=== PATIENT | male | born 1975 | race Caucasian/White ===

== ENCOUNTER 2016-11-02 15:47 | Emergency (ER) | payer BC, OTHER ==
--- NOTE | 2016-11-02 17:04 | REP ---
Chest x-ray: Two views. History: Chest pain . Comparison study: No comparison . Findings: The lungs are well inflated and free of infiltrate. The pleural angles are sharp. The heart size is normal. Pulmonary vasculature is not increased. No significant bony abnormality is seen. Impression: Negative chest x-ray. Signed by Pedrito Roa MD 11/02/2016 04:56 P
--- NOTE | 2016-11-02 17:40 | EDDOCDS ---
Nurse's Notes [facility] Name: Marquis Menjivar Age: 41 yrs Sex: Male : 1975 Arrival Date: 11/02/2016 Time: 15:47 Bed PD Private MD: Diagnosis: Chest pain, unspecified;Gastro-esophageal reflux disease Presentation: 11/02 15:53 Presenting complaint: Patient states: "cramping" like chest pain at approx 1505 lasting jjr approx 2 minutes, pt reports several episodes in the past but wanted to "get checked out today" pt denies SOB then and now also denies any diaphoresis. Aspirin was not taken prior to arrival. Adult Sepsis Screening: The patient does not have new or worsening altered mentation. Patient's respiratory rate is less than 22. Systolic blood pressure is greater than 100. Patient has a qSOFA score of 0- Negative Sepsis Screen. Suicide/Homicide risk assessment- the patient denies having any suicidal and/or homicidal ideations and does not present with any other emotional, behavioral or mental health complaints. Status: Patient is not a financial service rep or dependent. Transition of care: patient was not received from another setting of care. 15:53 Acuity: BITA Level 3 jjr 15:53 Method Of Arrival: Walkin/Carried/Asstd jjr Triage Assessment: 15:57 General: Appears in no apparent distress. Pain: Denies pain. Pt Declines HIV testing. jjr Neurological: No deficits noted. Cardiovascular: Chest pain is described as Pain is 6 out of 10 on a pain scale. radiates to right chest episodes last 2-3 minutes began 1 hour prior to arrival. Respiratory: No deficits noted. Derm: No deficits noted. Historical: - Allergies: PENICILLINS (Unknown); - Home Meds: 1. none - PMHx: none; - PSHx: Tonsillectomy; - Social history: Smoking status: Patient states former smoker of tobacco. No barriers to communication noted, The patient speaks fluent Polish. - Family history: Not pertinent. - : The pt / caregiver states he / she is not on anticoagulants. Home medication list is obtained from the patient. - Exposure Risk Screening:: None identified. Screenin:37 Screening information is obtained from the patient. Fall risk: No risks identified. ttb Assistance ADL's: requires no assistance with activities of daily living. Abuse/DV Screen: The patient / caregiver reports he/she is: not in a situation that causes fear, pain or injury. Nutritional screening: No deficits noted. Advance Directives: Currently, there is no health care proxy. home support is adequate. Assessment: 17:37 General: Appears in no apparent distress, comfortable, well nourished, well groomed, ttb Behavior is anxious, appropriate for age, cooperative, pleasant. Pain: Location: Mid chest. Neurological: Level of Consciousness is awake, alert. Cardiovascular: Rhythm is SEE EKG. Respiratory: Airway is patent Respiratory effort is even, unlabored, Denies cough, shortness of breath. GI: Denies nausea, vomiting, pain. Derm: Skin is normal. Injury Description: No known injury. Vital Signs: 15:49 BP 147 / 88; Pulse 78; Resp 18; Temp 97.7(O); Pulse Ox 100% on R/A; Weight 72.57 kg ct3 (R); Height 5 ft. 7 in. (170.18 cm) (R); Pain 0/10; 17:25 BP 144 / 90; Pulse 61; Resp 18; Temp 98.8(O); Pulse Ox 99% on R/A; Pain 0/10; jb5 15:49 Body Mass Index 25.06 (72.57 kg, 170.18 cm) ct3 Vitals: 15:49 Log In Time: November 02, 2016 at 15:47. RN notified that patient meets Red Flag ct3 criteria. ED Course: 15:48 Patient visited by Helena Esteban PCA. ct3 15:48 Patient moved to Waiting ct3 15:51 Patient moved to PR2 / 26 ct3 15:54 Triage Initiated jjr 15:58 Patient moved to Triage 1 jjr 15:58 EKG done. (by ED staff). Reviewed by Selvin Gongora MD. ms18 16:08 Pancho Vang PA-C is PSYCHIATRICP. dk1 16:08 Selvin Gongora MD is Attending Physician. dk1 16:08 Patient visited by Pancho Vang PA-C. dk1 16:47 Patient moved to TR2 ttb 16:53 [facility] Payment Agreement was scanned into [employer] and attached to record. jp5 17:10 Chest, 2 View (pa\\E\\lat) Returned. EDMS 17:17 Patient moved to jb5 17:25 Patient visited by Merle Keane PCA. jb5 17:26 Patient visited by Merle Keane PCA. jb5 17:37 The patient / caregiver is instructed regarding the plan of care and ED course. Patient ttb has correct armband on for positive identification. Cardiac monitoring not applicable on this patient. 17:37 No IV's were initiated during this patient's visit. No procedures done that require ttb assistance. Order Results: Radiology Order: Chest, 2 View (pa\\E\\lat) Test: Chest, 2 View (pa\\E\\lat) REASON FOR EXAMINATION: Chest Pain; Chest x-ray: Two views.; ; History: Chest pain .; ; Comparison study: No comparison .; ; Findings: The lungs are well inflated and free of infiltrate. The pleural; angles are sharp. The heart size is normal. Pulmonary vasculature is not; increased. No significant bony abnormality is seen.; ; Impression:; ; Negative chest x-ray.; ; ; Signed by; Pedrito Roa MD 11/02/2016 04:56 P; Outcome: 17:17 Discharge ordered by Provider. dk1 17:37 Discharge Assessment: Patient awake, alert and oriented x 3. No cognitive and/or ttb functional deficits noted. Patient verbalized understanding of disposition instructions. Patient awake and alert. patient administered narcotics - no. The following High Risk Discharge criteria are identified: None. Discharged to home ambulatory. Condition: good Condition: stable Condition: improved. Discharge instructions given to patient, Instructed on discharge instructions, follow up and referral plans. medication usage, diet, Demonstrated understanding of instructions, medications, decrease acidic diet Pt was receptive of discharge instructions/ teaching. Prescriptions given X 1. No special radiology studies were completed. Property :Personal belongings accompany Pt. 17:39 Patient left the ED. ttb Signatures: Dispatcher [employer] EDSD Merle Keane PCA EVENTS ASSOCIATE jb5 Pancho Vang PA-C PA-C dk1 Valerie Garcia, RN RN Helena Duran PCA EVENTS ASSOCIATE ct3 Simi Adame RN RN ttb Jesika Tapia RN RN ms18 Raysa Johnson 5 MTDD
--- NOTE | 2016-11-02 17:40 | EDDOCDS ---
Physician Documentation [facility] Name: Marquis Menjivar Age: 41 yrs Sex: Male : 1975 Arrival Date: 11/02/2016 Time: 15:47 Bed PD Private MD: Disposition: 11/02/16 17:17 Discharged to Home/Self Care. Impression: Chest pain, unspecified, Gastro-esophageal reflux disease. - Condition is Stable. - Discharge Instructions: Nonspecific Chest Pain, Gastroesophageal Reflux Disease, Adult. - Prescriptions for Prilosec 20 mg Oral Capsule, Delayed Release(E.C.) - take 1 capsule by ORAL route once daily; 30 capsule. - Medication Reconciliation, Local Pharmacy Hours form. - Follow up: Private Physician; When: 2 - 3 days; Reason: Continuance of care. Follow up: Emergency Department; When: As needed; Reason: Worsening of conditions. - Problem is new. - Symptoms are resolved. Historical: - Allergies: PENICILLINS (Unknown); - Home Meds: 1. none - PMHx: none; - PSHx: Tonsillectomy; - Social history: Smoking status: Patient states former smoker of tobacco. No barriers to communication noted, The patient speaks fluent Spanish. - Family history: Not pertinent. - : The pt / caregiver states he / she is not on anticoagulants. Home medication list is obtained from the patient. - Exposure Risk Screening:: None identified. Vital Signs: 11/02 15:49 BP 147 / 88; Pulse 78; Resp 18; Temp 97.7(O); Pulse Ox 100% on R/A; Weight 72.57 kg / ct3 159.99 lbs (R); Height 5 ft. 7 in. (170.18 cm) (R); Pain 0/10; 17:25 BP 144 / 90; Pulse 61; Resp 18; Temp 98.8(O); Pulse Ox 99% on R/A; Pain 0/10; jb5 15:49 Body Mass Index 25.06 (72.57 kg, 170.18 cm) ct3 MDM: 15:50 ECG WITH READING ER PHYS+CARDIAG ordered. EDMS 16:32 Chest, 2 View (pa\E\lat) Ordered. EDMS 16:53 [place] was scanned into [employer] and attached to record. jp5 16:53 Financial registration complete. jp5 Signatures: Dispatcher [employer] Pancho Carmona, PARTH PABrooklynn dk1 Valerie Garcia, RN RN Simi Thomason RN RN Raysa Quintanilla jp5 The chart was reviewed and I authenticate all verbal orders and agree with the evaluation and treatment provided.Attachments: 16:53 [facility] Payment Agreement jp5 MTDD
--- NOTE | 2016-11-03 08:54 | ECGEPIP ---
Stationary ECG Study [facility] - ED Test Date: 2016-11-02 Pat Name: KAREN SIMMONS Department: Room: - Gender: M Derrick Operator: ms : 1975 Requested By: Selvin Ulrich Order Number: [id number] Reading MD: Gale Dial Measurements Intervals [place] Rate: 62 P: 52 MO: 166 QRS: -9 QRSD: 83 T: 20 QT: 397 QTc: 404 Interpretive Statements SINUS RHYTHM NO PRIOR FOR COMPARISON Electronically Signed On 11-03-2016 8:53:55 EST by Gale Dial
--- NOTE | 2016-11-04 18:40 | EDDOCDS ---
Physician Documentation [facility] Name: Marquis Menjivar Age: 41 yrs Sex: Male : 1975 Arrival Date: 11/02/2016 Time: 15:47 Bed PD Private MD: Disposition: 11/02/16 17:17 Discharged to Home/Self Care. Impression: Chest pain, unspecified, Gastro-esophageal reflux disease. - Condition is Stable. - Discharge Instructions: Nonspecific Chest Pain, Gastroesophageal Reflux Disease, Adult. - Prescriptions for Prilosec 20 mg Oral Capsule, Delayed Release(E.C.) - take 1 capsule by ORAL route once daily; 30 capsule. - Medication Reconciliation, Local Pharmacy Hours form. - Follow up: Private Physician; When: 2 - 3 days; Reason: Continuance of care. Follow up: Emergency Department; When: As needed; Reason: Worsening of conditions. - Problem is new. - Symptoms are resolved. Historical: - Allergies: PENICILLINS (Unknown); - Home Meds: 1. none - PMHx: none; - PSHx: Tonsillectomy; - Social history: Smoking status: Patient states former smoker of tobacco. No barriers to communication noted, The patient speaks fluent Belarusian. - Family history: Not pertinent. - : The pt / caregiver states he / she is not on anticoagulants. Home medication list is obtained from the patient. - Exposure Risk Screening:: None identified. Vital Signs: 11/02 15:49 BP 147 / 88; Pulse 78; Resp 18; Temp 97.7(O); Pulse Ox 100% on R/A; Weight 72.57 kg / ct3 159.99 lbs (R); Height 5 ft. 7 in. (170.18 cm) (R); Pain 0/10; 17:25 BP 144 / 90; Pulse 61; Resp 18; Temp 98.8(O); Pulse Ox 99% on R/A; Pain 0/10; jb5 15:49 Body Mass Index 25.06 (72.57 kg, 170.18 cm) ct3 MDM: 15:50 ECG WITH READING ER PHYS+CARDIAG ordered. EDMS 16:32 Chest, 2 View (pa\E\lat) Ordered. EDMS 16:53 [place] [place] Agreement was scanned into [employer] and attached to record. jp5 16:53 Financial registration complete. jp5 22:38 T-Sheet-- Draft Copy was scanned into [employer] and attached to record. r 11/03 15:42 ECG/EKG was scanned into [employer] and attached to record. kf3 Signatures: Dispatcher [employer] EDPancho Andrea PA-C PA-C dk1 Robinson Patel, Reg Reg kf3 Valerie Garcia RN RN Simi Thomason RN RN Raysa Quintanilla jp5 Gloria Araujo klr The chart was reviewed and I authenticate all verbal orders and agree with the evaluation and treatment provided.Attachments: 11/02 16:53 [facility] INCLUDES THE [facility] Payment Agreement jp5 22:38 T-Sheet-- Draft Copy r 11/03 15:42 ECG/EKG kf3 Chart Complete MTDD
--- NOTE | 2016-11-04 18:40 | EDDOCDS ---
Nurse's Notes [facility] Name: Karen Simmons Age: 41 yrs Sex: Male : 1975 Arrival Date: 11/02/2016 Time: 15:47 Bed PD Private MD: Diagnosis: Chest pain, unspecified;Gastro-esophageal reflux disease Presentation: 11/02 15:53 Presenting complaint: Patient states: "cramping" like chest pain at approx 1505 lasting jjr approx 2 minutes, pt reports several episodes in the past but wanted to "get checked out today" pt denies SOB then and now also denies any diaphoresis. Aspirin was not taken prior to arrival. Adult Sepsis Screening: The patient does not have new or worsening altered mentation. Patient's respiratory rate is less than 22. Systolic blood pressure is greater than 100. Patient has a qSOFA score of 0- Negative Sepsis Screen. Suicide/Homicide risk assessment- the patient denies having any suicidal and/or homicidal ideations and does not present with any other emotional, behavioral or mental health complaints. Status: Patient is not a automotive service management teacher or dependent. Transition of care: patient was not received from another setting of care. 15:53 Acuity: BITA Level 3 jjr 15:53 Method Of Arrival: Walkin/Carried/Asstd jjr Triage Assessment: 15:57 General: Appears in no apparent distress. Pain: Denies pain. Pt Declines HIV testing. jjr Neurological: No deficits noted. Cardiovascular: Chest pain is described as Pain is 6 out of 10 on a pain scale. radiates to right chest episodes last 2-3 minutes began 1 hour prior to arrival. Respiratory: No deficits noted. Derm: No deficits noted. Historical: - Allergies: PENICILLINS (Unknown); - Home Meds: 1. none - PMHx: none; - PSHx: Tonsillectomy; - Social history: Smoking status: Patient states former smoker of tobacco. No barriers to communication noted, The patient speaks fluent Yakut. - Family history: Not pertinent. - : The pt / caregiver states he / she is not on anticoagulants. Home medication list is obtained from the patient. - Exposure Risk Screening:: None identified. Screenin:37 Screening information is obtained from the patient. Fall risk: No risks identified. ttb Assistance ADL's: requires no assistance with activities of daily living. Abuse/DV Screen: The patient / caregiver reports he/she is: not in a situation that causes fear, pain or injury. Nutritional screening: No deficits noted. Advance Directives: Currently, there is no health care proxy. home support is adequate. Assessment: 17:37 General: Appears in no apparent distress, comfortable, well nourished, well groomed, ttb Behavior is anxious, appropriate for age, cooperative, pleasant. Pain: Location: Mid chest. Neurological: Level of Consciousness is awake, alert. Cardiovascular: Rhythm is SEE EKG. Respiratory: Airway is patent Respiratory effort is even, unlabored, Denies cough, shortness of breath. GI: Denies nausea, vomiting, pain. Derm: Skin is normal. Injury Description: No known injury. Vital Signs: 15:49 BP 147 / 88; Pulse 78; Resp 18; Temp 97.7(O); Pulse Ox 100% on R/A; Weight 72.57 kg ct3 (R); Height 5 ft. 7 in. (170.18 cm) (R); Pain 0/10; 17:25 BP 144 / 90; Pulse 61; Resp 18; Temp 98.8(O); Pulse Ox 99% on R/A; Pain 0/10; jb5 15:49 Body Mass Index 25.06 (72.57 kg, 170.18 cm) ct3 Vitals: 15:49 Log In Time: November 02, 2016 at 15:47. RN notified that patient meets Red Flag ct3 criteria. ED Course: 15:48 Patient visited by Helena Esteban PCA. ct3 15:48 Patient moved to Waiting ct3 15:51 Patient moved to PR2 / 26 ct3 15:54 Triage Initiated jjr 15:58 Patient moved to Triage 1 jjr 15:58 EKG done. (by ED staff). Reviewed by Selvin Gongora MD. ms18 16:08 Pancho Vang PA-C [facility]. dk1 16:08 Selvin Gongora MD is Attending Physician. dk1 16:08 Patient visited by Pancho Vang PA-C. dk1 16:47 Patient moved to TR2 ttb 16:53 [facility] Payment Agreement was scanned into [employer] and attached to record. jp5 17:10 Chest, 2 View (pa\\E\\lat) Returned. EDMS 17:17 Patient moved to PD jb5 17:25 Patient visited by Merle Keane PCA. jb5 17:26 Patient visited by Merle Keane PCA. jb5 17:37 The patient / caregiver is instructed regarding the plan of care and ED course. Patient ttb has correct armband on for positive identification. Cardiac monitoring not applicable on this patient. 17:37 No IV's were initiated during this patient's visit. No procedures done that require ttb assistance. 22:38 T-Sheet-- Draft Copy was scanned into [employer] and attached to record. r 11/03 09:23 EKG-ADULT Returned. EDMS 15:42 ECG/EKG was scanned into [employer] and attached to record. kf3 Order Results: Radiology Order: EKG-ADULT Test: EKG-ADULT REASON FOR EXAMINATION: Chest Pain; Stationary ECG Study; [facility] - ED; ; Test Date: 2016-11-02; Pat Name: KAREN SIMMONS Department:; Room: -; Gender: M Technical Support 1 Software Engineer: ms; : 1975 Requested By: Selvin Ulrich; Order Number: [id number] Reading MD: Gale Dial; Measurements; Intervals [place]; Rate: 62 P: 52; MA: 166 QRS: -9; QRSD: 83 T: 20; QT: 397; QTc: 404; Interpretive Statements; SINUS RHYTHM; NO PRIOR FOR COMPARISON; Electronically Signed On 11-03-2016 8:53:55 EST by Gale Dial; Radiology Order: Chest, 2 View (pa\\E\\lat) Test: Chest, 2 View (pa\\E\\lat) REASON FOR EXAMINATION: Chest Pain; Chest x-ray: Two views.; ; History: Chest pain .; ; Comparison study: No comparison .; ; Findings: The lungs are well inflated and free of infiltrate. The pleural; angles are sharp. The heart size is normal. Pulmonary vasculature is not; increased. No significant bony abnormality is seen.; ; Impression:; ; Negative chest x-ray.; ; ; Signed by; Pedrito Roa MD 11/02/2016 04:56 P; Outcome: 11/02 17:17 Discharge ordered by Provider. dk1 17:37 Discharge Assessment: Patient awake, alert and oriented x 3. No cognitive and/or ttb functional deficits noted. Patient verbalized understanding of disposition instructions. Patient awake and alert. patient administered narcotics - no. The following High Risk Discharge criteria are identified: None. Discharged to home ambulatory. Condition: good Condition: stable Condition: improved. Discharge instructions given to patient, Instructed on discharge instructions, follow up and referral plans. medication usage, diet, Demonstrated understanding of instructions, medications, decrease acidic diet Pt was receptive of discharge instructions/ teaching. Prescriptions given X 1. No special radiology studies were completed. Property :Personal belongings accompany Pt. 17:39 Patient left the ED. ttb Signatures: Dispatcher [employer] EDMS Merle Keane, WELDING MACHINE OPERATOR GAS WELDING MACHINE OPERATOR GAS jb5 Pancho Vang PA-C PABrooklynn dk1 Robinson Patel, Reg Reg kf3 Valerie Garcia, RN RN Helena Duran, WELDING MACHINE OPERATOR GAS WELDING MACHINE OPERATOR GAS ct3 Simi Adame, NANCY RN ttb Jesika Tapia RN RN ms18 Raysa Johnson jp5 Gloria Araujo Chart Complete MTDAntelmo
--- NOTE | 2016-11-04 18:40 | EDDOCDS ---
Physician Documentation [facility] Name: Marquis Menjivar Age: 41 yrs Sex: Male : 1975 Arrival Date: 11/02/2016 Time: 15:47 Bed PD Private MD: Disposition: 11/02/16 17:17 Discharged to Home/Self Care. Impression: Chest pain, unspecified, Gastro-esophageal reflux disease. - Condition is Stable. - Discharge Instructions: Nonspecific Chest Pain, Gastroesophageal Reflux Disease, Adult. - Prescriptions for Prilosec 20 mg Oral Capsule, Delayed Release(E.C.) - take 1 capsule by ORAL route once daily; 30 capsule. - Medication Reconciliation, Local Pharmacy Hours form. - Follow up: Private Physician; When: 2 - 3 days; Reason: Continuance of care. Follow up: Emergency Department; When: As needed; Reason: Worsening of conditions. - Problem is new. - Symptoms are resolved. Historical: - Allergies: PENICILLINS (Unknown); - Home Meds: 1. none - PMHx: none; - PSHx: Tonsillectomy; - Social history: Smoking status: Patient states former smoker of tobacco. No barriers to communication noted, The patient speaks fluent Czech. - Family history: Not pertinent. - : The pt / caregiver states he / she is not on anticoagulants. Home medication list is obtained from the patient. - Exposure Risk Screening:: None identified. Vital Signs: 11/02 15:49 BP 147 / 88; Pulse 78; Resp 18; Temp 97.7(O); Pulse Ox 100% on R/A; Weight 72.57 kg / ct3 159.99 lbs (R); Height 5 ft. 7 in. (170.18 cm) (R); Pain 0/10; 17:25 BP 144 / 90; Pulse 61; Resp 18; Temp 98.8(O); Pulse Ox 99% on R/A; Pain 0/10; jb5 15:49 Body Mass Index 25.06 (72.57 kg, 170.18 cm) ct3 MDM: 15:50 ECG WITH READING ER PHYS+CARDIAG ordered. EDMS 16:32 Chest, 2 View (pa\E\lat) Ordered. EDMS 16:53 [place] [place] was scanned into [employer] and attached to record. jp5 16:53 Financial registration complete. jp5 22:38 T-Sheet-- Draft Copy was scanned into [employer] and attached to record. r 11/03 15:42 ECG/EKG was scanned into [employer] and attached to record. kf3 Signatures: Dispatcher [employer] EDPancho Andrea PA-C PA-C dk1 Robinson Patel, Reg Reg kf3 Valerie Garcia RN RN Simi Thomason RN RN Raysa Quintanilla jp5 Gloria Araujo klr The chart was reviewed and I authenticate all verbal orders and agree with the evaluation and treatment provided.Attachments: 11/02 16:53 [facility] Payment Agreement jp5 22:38 T-Sheet-- Draft Copy r 11/03 15:42 ECG/EKG kf3 Chart Complete MTDD
== END 2016-11-02 17:39 | disposition home or self-care (01) ==
LOC: M ED 15:47
DX: R07.9 Chest pain, unspecified (principal); K21.9 Gastro-esophageal reflux disease without esophagitis; Z87.891 Personal history of nicotine dependence; Z88.0 Allergy status to penicillin

== ENCOUNTER 2017-03-18 19:18 | Emergency (ER) | payer BC, OTHER ==
[~2017-03-18] VITALS: Ht 170.2 cm; Wt 73.1 kg
[2017-03-18] MEDS ORDERED: KETOROLAC 60 MG/2 ML VIAL (J1885) IM ONE (21:30)
[2017-03-18] MEDS ORDERED: PERCOCET 5MG/325MG TAB PO ONE (21:30)
[2017-03-18] MEDS ORDERED: NAPR500T PO (21:33)
[2017-03-18] MEDS ORDERED: NORCOTAB PO (21:33)
[2017-03-18 21:59] VITALS: BP 156/103
--- NOTE | 2017-03-18 23:24 | REP ---
LEFT SHOULDER, THREE VIEWS: There is no evidence of an acute fracture, dislocation or intrinsic bone disease. IMPRESSION: No fracture or dislocation. Signed by Jimmy Erickson MD 03/19/2017 05:00 P
--- NOTE | 2017-03-18 23:25 | REP ---
LEFT RIB SERIES: Four views of the left ribs performed. There is no acute fracture or bone lesion. An accompanying view of the chest demonstrates no acute infiltrate or pneumothorax. Heart is normal in size. IMPRESSION: Negative left rib series. Signed by Jimmy Erickson MD 03/19/2017 05:00 P
== END 2017-03-18 22:04 | disposition home or self-care (01) ==
LOC: M ED 20:29
DX: S20.219A Contusion of unspecified front wall of thorax, initial encounter (principal); W51.XXXA Accidental striking against or bumped into by another person, initial encounter; Y92.89 Other specified places as the place of occurrence of the external cause; Y93.64 Activity, baseball; Y99.8 Other external cause status; Z87.891 Personal history of nicotine dependence
CPT/HCPCS: 71101; 73030; 96372; 99283; J1885

== ENCOUNTER 2019-07-20 11:54 | Emergency (ER) | payer OTHER, BC ==
[~2019-07-20] VITALS: Ht 170.2 cm; Wt 71.8 kg
[~2019-07-20 11:54] MED LIST: HYDR-3715 PO; NAPR-837 PO
[2019-07-20] MEDS ORDERED: LIDOCAINE W/EPINEPHRINE 1% 20ML VIAL SC ONE (13:00)
[2019-07-20 13:51] VITALS: BP 141/95
== END 2019-07-20 13:54 | disposition home or self-care (01) ==
LOC: M ED 11:54
DX: S01.81XA Laceration without foreign body of other part of head, initial encounter (principal); W22.8XXA Striking against or struck by other objects, initial encounter; Y92.099 Unspecified place in other non-institutional residence as the place of occurrence of the external cause; Y93.89 Activity, other specified; Y99.9 Unspecified external cause status; Z88.0 Allergy status to penicillin

== ENCOUNTER 2019-11-26 06:49 | Emergency (ER) | payer BC, OTHER ==
[~2019-11-26] VITALS: Ht 170.2 cm; Wt 71.8 kg
[2019-11-26 07:51] LABS: BASO % 1.1 % (0.0-1.0); EOS # 0.1 10^3/uL (0.0-0.5); EOS % 2.1 % (0.0-3.0); HEMATOCRIT 45.9 % (42.0-52.0); HEMOGLOBIN 14.6 g/dl (13.5-17.5); LYMPH # 1.2 10^3/uL (1.5-5.0); LYMPH % 31.9 % (24.0-44.0); MEAN CORPUSCULAR HGB CONC 31.8 g/dl (32.0-36.5); MEAN CORPUSCULAR VOLUME 91.3 fl (80.0-96.0); MONO # 0.5 10^3/uL (0.0-0.8); MONO % 12.1 % (0.0-5.0); NEUTROPHILS % 52.5 % (36.0-66.0); PLATELET COUNT, AUTOMATED 237 10^3/uL (150-450); RED BLOOD COUNT 5.03 10^6/uL (4.30-6.10); WHITE BLOOD COUNT 3.7 10^3/uL (4.0-10.0)
[2019-11-26 07:54] LABS: APPEARANCE, URINE CLEAR (CLEAR); BACTERIA, URINE AUTO NEGATIVE (NEGATIVE); BILIRUBIN, URINE AUTO NEGATIVE (NEGATIVE); BLOOD, URINE BLOOD NEGATIVE (NEGATIVE); COLOR, URINE YELLOW (YELLOW); GLUCOSE, URINE (UA) AUTO NEGATIVE (NEGATIVE); KETONE, URINE AUTO NEGATIVE (NEGATIVE); LEUKOCYTE ESTERASE, URINE AUTO NEGATIVE (NEGATIVE); NITRITE, URINE AUTO NEGATIVE (NEGATIVE); PROTEIN, URINE AUTO NEGATIVE (NEGATIVE); RBC, URINE AUTO 1 /HPF (0-3); SPECIFIC GRAVITY URINE AUTO 1.016 (1.002-1.035); SQUAMOUS EPITHELIAL CELL UR AU 0 /HPF (0-6); UROBILINOGEN, URINE AUTO 0.2 mg/dL (0.0-2.0); WBC, URINE AUTO 1 /HPF (0-3)
[2019-11-26 08:15] LABS: ALBUMIN 4.3 GM/DL (3.2-5.2); ALT/SGPT 27 U/L (12-78); BILIRUBIN,DIRECT 0.1 MG/DL (0.0-0.2); BILIRUBIN,TOTAL 0.6 MG/DL (0.2-1.0); BLOOD UREA NITROGEN 13 MG/DL (7-18); CALCIUM LEVEL 8.9 MG/DL (8.5-10.1); CARBON DIOXIDE LEVEL 27 MEQ/L (21-32); CHLORIDE LEVEL 108 MEQ/L (98-107); CREATININE FOR GFR 0.97 MG/DL (0.70-1.30); GLOMERULAR FILTRATION RATE > 60.0 (>60); GLUCOSE, FASTING 90 MG/DL (70-100); LIPASE 115 U/L (73-393); POTASSIUM SERUM 4.5 MEQ/L (3.5-5.1); SODIUM LEVEL 142 MEQ/L (136-145); TOTAL PROTEIN 7.4 GM/DL (6.4-8.2)
--- NOTE | 2019-11-26 08:53 | REP ---
CT abdomen and pelvis without IV or oral contrast: Renal stone protocol. HISTORY : Right flank pain and groin pain. No comparison study. Findings: Preliminary digital saw grinder radiograph demonstrates an unremarkable bowel gas pattern. The lung bases are clear. The liver is normal in size, homogeneous in texture. No focal hepatic lesion is seen. Spleen is unremarkable. No adrenal lesion is observed on either side. No abnormality is noted in the pancreas or within the gallbladder. There is no evidence of hydronephrosis or intrarenal calculus in either kidney. No ureteral calculus is observed. No bladder calculus is seen. There is a dystrophic calcification in the prostate. A phlebolith is noted in the left pelvis. No pelvic mass or adenopathy is seen. A normal non-inflamed appendix is seen in the right lower quadrant. Small and large bowel loops are unremarkable. No retroperitoneal mass or adenopathy is observed. No abdominal wall defect is seen. Bone window settings show no bony destructive lesion. Impression: Negative CT study abdomen and pelvis. No urinary tract calculus or hydronephrosis seen. No acute abnormality. Electronically Signed by Pedrito Roa MD 11/26/2019 09:00 A
[2019-11-26 08:57] VITALS: BP 179/102
== END 2019-11-26 08:58 | disposition home or self-care (01) ==
LOC: M ED 06:49
DX: R10.9 Unspecified abdominal pain (principal); R11.0 Nausea; Z88.0 Allergy status to penicillin

== ENCOUNTER 2023-01-07 15:24 | Emergency (ER) | payer BC, OTHER ==
[~2023-01-07] VITALS: Ht 170.2 cm; Wt 75.7 kg
[2023-01-07] MEDS ORDERED: METO1TAB32 (15:32)
[2023-01-07] MEDS ORDERED: LOSA50TA28 (15:32)
[2023-01-07] MEDS ORDERED: DOXYCYCLINE HYCLATE 100MG TABLET PO ONE (16:35)
[2023-01-07] MEDS ORDERED: metroNIDAZOLE (FLAGYL) 500MG TABLET PO ONE (16:35)
[2023-01-07] MEDS ORDERED: DOXY-443 PO (18:36)
[2023-01-07] MEDS ORDERED: METR-265 PO (18:36)
[2023-01-07 18:42] VITALS: BP 155/91
== END 2023-01-07 18:50 | disposition home or self-care (01) ==
LOC: M ED 15:24
DX: S61.432A Puncture wound without foreign body of left hand, initial encounter (principal); W54.0XXA Bitten by dog, initial encounter; Y92.410 Unspecified street and highway as the place of occurrence of the external cause; Y93.89 Activity, other specified; Y99.8 Other external cause status; I10 Essential (primary) hypertension

== ENCOUNTER 2023-10-21 13:51 | Emergency (ER) | payer BC, OTHER ==
[~2023-10-21] VITALS: Ht 170.2 cm; Wt 77.9 kg
[~2023-10-21 13:51] MED LIST changes: +DOXY-443 PO; +LOSA50TA28; +METO1TAB32; +METR-265 PO
[2023-10-21 15:12] LABS: BASO % 0.9 % (0.0-1.0); EOS # 0.1 10^3/uL (0.0-0.5); EOS % 1.5 % (0.0-3.0); HEMATOCRIT 39.6 % (42.0-52.0); LYMPH # 1.1 10^3/uL (1.5-5.0); LYMPH % 24.4 % (24.0-44.0); MEAN CORPUSCULAR HEMOGLOBIN 30.4 pg (27.0-33.0); MEAN CORPUSCULAR HGB CONC 32.8 g/dl (32.0-36.5); MEAN CORPUSCULAR VOLUME 92.7 fl (80.0-96.0); MONO # 0.6 10^3/uL (0.0-0.8); MONO % 11.8 % (2.0-8.0); NEUTROPHILS # 2.9 10^3/uL (1.5-8.5); PLATELET COUNT, AUTOMATED 223 10^3/uL (150-450); RED BLOOD COUNT 4.27 10^6/uL (4.30-6.10); WHITE BLOOD COUNT 4.7 10^3/uL (4.0-10.0)
[2023-10-21 15:34] LABS: BLOOD UREA NITROGEN 18 MG/DL (9-23); CALCIUM LEVEL 9.6 MG/DL (8.5-10.1); CARBON DIOXIDE LEVEL 28 MMOL/L (20-31); CHLORIDE LEVEL 107 MMOL/L (98-107); CREATININE FOR GFR 1.06 MG/DL (0.70-1.30); GLOMERULAR FILTRATION RATE > 60.0 (>60); GLUCOSE, FASTING 97 MG/DL (60-100); POTASSIUM SERUM 4.5 MMOL/L (3.5-5.1); SODIUM LEVEL 141 MMOL/L (136-145)
[2023-10-21] MEDS ORDERED: ISOVUE-370 76% 100ML VIAL As Ordered ONE (18:40)
[2023-10-21 19:39] LABS: CK-MB VALUE MASS < 1.0 NG/ML (<3.6)
[2023-10-21 19:40] LABS: ETHYL ALCOHOL (ETHANOL) 0.004 % (0.000-0.010)
[2023-10-21 19:42] LABS: ALBUMIN 4.3 G/DL (3.2-5.2); ALKALINE PHOSPHATASE 52 U/L (46-116); ALT/SGPT 35 U/L (7.0-40); AST/SGOT 25 U/L (<34); BILIRUBIN,DIRECT 0.2 MG/DL (<0.4); BILIRUBIN,TOTAL 0.7 MG/DL (0.3-1.2); MAGNESIUM LEVEL 1.9 MG/DL (1.8-2.4)
[2023-10-21 19:44] LABS: CPK CREATINE PHOSPHOKINASE 192 U/L (46-171); FREE T4 1.21 NG/DL (0.89-1.76); MB/CK RELATIVE INDEX 0.52 (< OR =4); THYROID STIMULATING HORMONE 4.483 uIU/ML (0.55-4.78)
[2023-10-21 20:35] VITALS: BP 142/93; TEMP 97.8; O2SAT 98
== END 2023-10-21 20:37 | disposition home or self-care (01) ==
LOC: M ED 13:51
DX: R42 Dizziness and giddiness (principal); R07.9 Chest pain, unspecified; I10 Essential (primary) hypertension; Z88.0 Allergy status to penicillin
CPT/HCPCS: 36415; 70450; 70496; 70498; 80048; 80076; 82077; 82550; 82553; 83735; 84439; 84443; 84484; 85025; 93005; 99284; Q9967